=== PATIENT | female | born 1985 | race Caucasian/White ===

== ENCOUNTER 2023-05-22 07:50 | Outpatient (OUT) | payer OTHER, SELFPAY ==
--- NOTE | 2023-05-22 07:55 | US_ITS ---
The [address] [address] Patient Name: ESTRADA CASTAÑEDA MRN: [id number] date: 1985 Sex: F Assigned Patient Location: US Current Patient Location: US Accession/Order Number: [id number] Exam Date: 05/22/2023 08:00 Report Date: 05/22/2023 08:29 At the request of: ERINN DILL Procedure: US right upper quadrant EXAM: US right upper quadrant HISTORY: . Right Upper Quadrant Abdominal Pain R10.11 . COMPARISON: None. TECHNIQUE: Arciniega scale and color imaging was performed FINDINGS: The pancreas appears normal. Scanning of the liver demonstrates a liver to be normal in size. No masses are noted. Color-flow is noted in the portal and hepatic veins. There is slight heterogeneity of echotexture of the liver. The gallbladder appears normal with no stones or sludge identified. No gallbladder wall thickening is noted. Common bile duct measures 2 mm. Right kidney measures 10.7 x 4.5 x 4.1 cm. No solid renal cortical masses or hydronephrosis is noted. No fluid is noted in the right upper quadrant. US/US right upper quadrant IMPRESSION: 1. Liver is slightly heterogeneous in its echotexture. This could be due to fatty infiltration of the liver. 2. The remainder the right upper quadrant is unremarkable. Electronically authenticated by: CELESTE TOLBERT Date: 05/22/2023 08:29
== END 2023-05-22 07:51 | disposition home or self-care (01) ==
LOC: US 07:50
PROVIDERS: PCP Internal Medicine; Visit Provider Internal Medicine
DX: R10.11 Right upper quadrant pain (principal); K76.9 Liver disease, unspecified
CPT/HCPCS: 76705

== ENCOUNTER 2025-01-12 11:18 | Outpatient (OUT) | payer OTHER, SELFPAY ==
--- NOTE | 2025-01-12 11:22 | MM_ITS ---
Patient Name: ESTRADA CASTAÑEDA MR#: [id number] : 1985 Exam Date: 01/12/2025 Ordering Doctor: DR Stanley Garcia D.O. RADIOLOGY REPORT PROCEDURE: MM TOMOSYNTHESIS SCREENING BI COMPARISON: None. INDICATIONS: Screening Calculator Name NCI Breast Cancer Risk Assessment Tool 5 Year Breast Cancer Risk 0.40% Lifetime Breast Cancer Risk 6.70% Personal Breast Cancer No Personal Ovarian Cancer No Treatments None Family Cancers None LOCATION: [facility] BREAST COMPOSITION: There are scattered areas of fibroglandular density. FINDINGS: DIAGNOSTIC CATEGORY 1--NEGATIVE. RIGHT BREAST: No significant suspicious finding. LEFT BREAST: No significant suspicious finding. RECOMMENDATIONS: ROUTINE MAMMOGRAM AND CLINICAL EVALUATION IN 12 MONTHS. PLEASE NOTE: A NORMAL MAMMOGRAM DOES NOT EXCLUDE THE POSSIBILITY OF BREAST CANCER. A CLINICALLY SUSPICIOUS PALPABLE LUMP SHOULD BE BIOPSIED. Dictated by: Young Bass DO on 01/12/2025 at 16:32 Approved by: Young Bass DO on 01/12/2025 at 16:35
== END 2025-01-12 11:19 | disposition home or self-care (01) ==
LOC: MAMMO 11:18
PROVIDERS: PCP Internal Medicine; Visit Provider Internal Medicine
DX: Z12.31 Encounter for screening mammogram for malignant neoplasm of breast (principal)
CPT/HCPCS: 77063; 77067